=== PATIENT | male | born 2000 | race Two or more races ===

== ENCOUNTER 2025-07-24 16:32 | Emergency (ER) | payer MEDICAID, OTHER ==
[~2025-07-24] VITALS: Ht 180.3 cm; Wt 66.0 kg
[2025-07-24] MEDS: ACETAMINOPHEN 325 MG TAB PO ONE (17:07)
[2025-07-24] MEDS: ONDANSETRON ODT 4 MG TAB PO ONE (18:35)
[2025-07-24] MEDS: SODIUM CHLORIDE 0.9% 1,000 ML IV ONE (18:36)
--- NOTE | 2025-07-24 18:39 | ED.PDOC ---
History of Present Illness HPI Comments 24-YEAR-OLD MALE PRESENTS TO ER WITH COMPLAINTS OF FLU-LIKE SYMPTOMS X2 DAYS. PATIENT REPORTS HE HAS BEEN EXPERIENCING SORE THROAT, INTERMITTENT FEVER, DRY COUGH AND FRONTAL HEADACHE X 2 DAYS WITH ASSOCIATED N/V X 1 DAY. HE RATES HIS CURRENT SORE THROAT PAIN AND FRONTAL HEADACHE PAIN AN 8/10 AND STATES HE LAST IBUPROFEN AT 10 A.M. PRIOR TO ARRIVAL TO ER. PATIENT PRESENTS TO ER FEBRILE ON ARRIVAL AT 101.1 F, ALERT AND ORIENTED X4 WITH STEADY GAIT. PATIENT IS ALSO NOTED TO BE HYPERVENTILATING ON ARRIVAL AND STATES "I NORMALLY GET VERY ANXIOUS WHEN I'M SICK". REPORTS + EXPOSURE TO SICK CONTACTS AT WORK. DENIES SHORTNESS OF BREATH, CHEST PAIN, DIZZINESS, NECK PAIN, ABDOMINAL PAIN, CHANGES IN URINATION/BM OR ANY FURTHER SYMPTOMS/COMPLAINTS Chief Complaint: Fever Time Seen by MD: 18:13 Primary Care Provider: UNKNOWN Reviewed Notes: Nurses Notes, Medications, Allergies Information Source: Patient Mode of Arrival: Ambulatory Past Medical History PAST MEDICAL HISTORY: Denies Surgical History: Denies all surgeries Family History Family History: Unknown Social History Smoker: Non-Smoker Alcohol: Denies ETOH Use Drugs: Denies Drug Use Lives In: Home Constitutional: See HPI EENTM: See HPI Respiratory: See HPI Cardiovascular: No Symptoms Reported Gastrointestinal: See HPI Genitourinary: No Symptoms Reported Neurological: See HPI Musculoskeletal: No Symptoms Reported Integumentary: No Symptoms Reported Allergic/Immunocompromised: others (DENIES) Hematologic/Lymphatic: No Symptoms Reported Endocrine: No Symptoms Reported Psychiatric: Other ( STATED IN HPI) Physical Exam General Appearance: Mild Distress HEENT: Normal ENT Inspection, PERRL/EOMI, Pharynx Normal, TMs Normal Neck: Full Range of Motion, Non-Tender, Normal Respiratory: Chest Non-Tender, Lungs Clear, No Accessory Muscle Use, No Respiratory Distress, Normal Breath Sounds Cardiovascular: No Murmur, No Gallop, Tachycardia Breast Exam: Deferred Gastrointestinal: No Organomegaly, Non Tender, No Pulsatile Mass, Normal Bowel Sounds, Soft Genitalia: Deferred Pelvic: Deferred Rectal: Deferred Extremities: Normal capillary refill, Normal range of motion Neurologic: Alert, painting technician II-XII nml as Tested, No Motor Deficits, Normal Mood, No Sensory Deficits Cerebellar Function: Normal Reflexes: Normal Skin: Dry, Normal Color, Warm Peripheral Pulses: 3+ Radial (R), 3+ Radial (L), 3+ Brachial (R), 3+ Brachial (L) Lymphatic: No Adenopathy Was a procedure done? Was a procedure done?: No Sedation Sedation?: No Fever Differential Dx Differential Diagnosis: Pneumonia, Sepsis, Pharyngitis X-Ray, Labs, Meds, VS Vital Signs Date Time Temp Pulse Resp B/P (MAP) Pulse Ox O2 Delivery O2 Flow Rate FiO2 07/24/25 19:35 99.4 99.4 07/24/25 19:35 99.4 07/24/25 19:06 100.7 07/24/25 18:41 100.7 102 16 111/61 (78) 100 100.7 07/24/25 18:41 102 16 100 Room Air 07/24/25 17:07 101.8 07/24/25 16:35 101.1 140 28 144/63 100 101.1 Lab Test 07/24/25 19:07 07/24/25 18:38 07/24/25 18:28 Range/Units Urine Color Yellow Yellow Urine Clarity Clear Clear Urine pH 7.5 5.0-9.0 Urine Specific [place] 1.022 1.001-1.035 Urine Protein Trace H Negative Urine Ketones 1+ H Negative Urine Blood Negative Negative /uL Urine Nitrite Negative Negative Urine Bilirubin Negative Negative Urine Urobilinogen 2 H Negative mg/dL Urine Leukocyte Esterase Negative Negative /uL Urine RBC <1 0 - 3 /hpf Urine Microscopic WBC 1 0-3 /HPF Urine Squamous Epithelial Cells Few <5 /hpf Urine Bacteria None seen None Seen /hpf Urine Mucus Few None Seen Urine Glucose Normal Normal mg/dL White Blood Count 8.6 4.4-10.8 10^3/uL Red Blood Count 4.88 4.5-5.90 10^6/uL Hemoglobin 14.5 13.5-17.5 g/dL Hematocrit 41.8 41.0-53.0 % Mean Corpuscular Volume 85.6 80.0-100.0 fL Mean Corpuscular Hemoglobin 29.7 28.0-32.0 pg Mean Corpuscular Hemoglobin Concent 34.7 32.0-36.0 g/dL Red Cell Distribution Width 13.3 11.8-14.3 % Platelet Count 173 140-450 10^3/uL Mean Platelet Volume 8.1 6.9-10.8 fL Neutrophils (%) (Auto) 86.2 H 37.0-80.0 % Lymphocytes (%) (Auto) 6.6 L 10.0-50.0 % Monocytes (%) (Auto) 7.0 0.0-12.0 % Eosinophils (%) (Auto) 0.0 0.0-7.0 % Basophils (%) (Auto) 0.2 0.0-2.0 % Neutrophils # (Auto) 7.4 1.6-8.6 10 ^3/uL Lymphocytes # (Auto) 0.6 0.4-5.4 10 ^3/uL Monocytes # (Auto) 0.6 0-1.3 10 ^3/uL Eosinophils # (Auto) 0 0-0.8 10 ^3/uL Basophils # (Auto) 0 0-0.2 10 ^3/uL Nucleated Red Blood Cells 0.1 % Sodium Level 138 136-145 mmol/L Potassium Level 3.0 L 3.5-5.1 mmol/L Chloride Level 102 98-107 mmol/L Carbon Dioxide Level 23 20-31 mmol/L Anion Gap 13 5-15 Blood Urea Nitrogen 10 9-23 mg/dL Creatinine 1.00 0.700-1.30 mg/dL Glomerular Filtration Rate Calc 109 >90 mL/min BUN/Creatinine Ratio 10.0 10.0-20.0 Serum Glucose 110 H 74-106 mg/dL Lactic Acid Level 1.3 0.4-2.0 mmol/L Calcium Level 9.4 8.7-10.4 mg/dL Total Bilirubin 1.5 H 0.2-1.0 mg/dL Aspartate Amino Transferase (AST) 17 13-40 U/L Alanine Aminotransferase (ALT) 16 7-40 U/L Alkaline Phosphatase 78 46-116 U/L Troponin I High Sensitivity < 3 L </=54 ng/L Total Protein 8.3 H 5.7-8.2 g/dL Albumin 5.0 H 3.2-4.8 g/dL Lipase 25 12-53 U/L Influenza Type A Antigen Negative Negative Influenza Type B Antigen Negative Negative SARS-CoV-2 Antigen (Rapid) Positive *A NEGATIVE Current Medications Medications (Trade) Dose Ordered Sig/Shyam Route Start Time Stop Time Status Last Admin Acetaminophen (Tylenol Tablet) 650 mg ONCE ONCE PO 07/24/25 16:45 07/24/25 16:46 DC 07/24/25 17:07 Sodium Chloride 1,000 ml @ 1,000 mls/hr Q1H ONCE IV 07/24/25 18:30 07/24/25 19:29 DC 07/24/25 18:36 Ondansetron HCl (Zofran Po) 4 mg ONCE ONCE PO 07/24/25 18:30 07/24/25 18:31 DC 07/24/25 18:35 Ibuprofen (Motrin Tablet) 800 mg ONCE ONCE PO 07/24/25 18:45 07/24/25 18:46 DC 07/24/25 19:06 PATIENT: DALE ROMANACCT: [id number]: [id number] : 2000 LOC: ER ROOM / BED: / AGE / SEX: 24 / M ADM STATUS: REG ER SERVICE 23 ORDERING PHYSICIAN: MARCELO SALDANA PROCEDURE(s): CXR2 - CHEST TWO VIEWS ROUTINE REASON: COUGH ORDER NUMBER(s): [id number], ACCESSION NUMBER(s): [id number] XY CHEST TWO VIEWS ROUTINE INDICATION: COUGH TECHNIQUE: Two views of the chest COMPARISON: None FINDINGS/IMPRESSION: LUNGS: No pleural effusion, consolidation, or pneumothorax MEDIASTINUM: Unremarkable BONES: No acute osseous abnormality OTHER: None ATED BY: KYLIE HOPSON MD DICTATED DATE/TIME: 07/24/251925 SIGNED BY: KYLIE HOPSON MD SIGNED DATE/TIME: 07/24/251925 CC: TYLENOL 650 MG P.O. ORDERED HEP-LOCK IV ORDERED NS 1 L IV ORDERED ZOFRAN 4 MG P.O. ORDERED IBUPROFEN 800 MG P.O. ORDERED POTASSIUM 40 MEQ P.O. ORDERED CBC REVIEWED WITHOUT ANY SIGNIFICANT ABNORMALITIES CMP REVIEWED- POTASSIUM 3.0 TROPONIN REVIEWED-NORMAL LIPASE REVIEWED-NORMAL LACTIC ACID REVIEWED-NORMAL BLOOD CULTURES ORDERED URINALYSIS REVIEWED WITHOUT ANY SIGNIFICANT ABNORMALITIES SWAB RESULTS REVIEWED-JUANCHO POSITIVE CHEST X-RAY REVIEWED PATIENT HAD IMPROVEMENT IN SYMPTOMS, AFEBRILE, TOLERATING P.O. INTAKE WELL AND WELL APPEARING/IN NO DISTRESS PRIOR TO DISCHARGE DIET EDUCATION DISCUSSED ADVISED TO FOLLOW UP WITH PCP IN 1-2 DAYS PATIENT VERBALIZED UNDERSTANDING AND AGREEABLE WITH CURRENT PLAN OF CARE ADVISED TO RETURN TO ER IMMEDIATELY IF SYMPTOMS WORSEN Images Reviewed?: Images reviewed and evaluated by me Time of 1ST Reevaluation: 18:38 Reevaluation 1ST: N/A Time of 2ND Reevaluation: 19:50 Reevaluation 2ND: Improved Patient Education/Counseling: Diagnosis, Treatment, Prognosis, Need For Follow Up Family Education/Counseling: No Family Present SEPSIS Sepsis Screen Date sepsis recognized/suspect: Jul 24, 2025 Time Sepsis recognized/suspect: 1634 Recent Procedure: No On Antibiotic Therapy: No Respiratory Rate >20: Yes Heart Rate >90: Yes Temp<36 C (96.8 F) or >38.3 C: Yes SBP <90 or MAP <65 mmHG: No New Acute Mental Status Change: No Is the patient on CPAP, BIPAP,: Yes Physician Orders Heplock Iv (07/24/25 ) Chest Two Views Routine (07/24/25 18:24) Director Of Manufacturing Operations (07/24/25 ) Pulse Oximetry (07/24/25 ) Blood Pressure (07/24/25 ) Vital Signs Date Time Temp Pulse Resp B/P (MAP) Pulse Ox O2 Delivery O2 Flow Rate FiO2 07/24/25 19:35 99.4 99.4 07/24/25 19:35 99.4 07/24/25 19:06 100.7 07/24/25 18:41 100.7 102 16 111/61 (78) 100 100.7 07/24/25 18:41 102 16 100 Room Air 07/24/25 17:07 101.8 07/24/25 16:35 101.1 140 28 144/63 100 101.1 Laboratory Tests Test 07/24/25 18:38 Lactic Acid Level 1.3 mmol/L (0.4-2.0) White Blood Count 8.6 10^3/uL (4.4-10.8) Medications Medications Dose Ordered Sig/Shyam Route Start Time Stop Time Status Last Admin Dose Admin Acetaminophen 650 mg ONCE ONCE PO 07/24/25 16:45 07/24/25 16:46 DC 07/24/25 17:07 Ibuprofen 800 mg ONCE ONCE PO 07/24/25 18:45 07/24/25 18:46 DC 07/24/25 19:06 Ondansetron HCl 4 mg ONCE ONCE PO 07/24/25 18:30 07/24/25 18:31 DC 07/24/25 18:35 Sodium Chloride 1,000 ml @ 1,000 mls/hr Q1H ONCE IV 07/24/25 18:30 07/24/25 19:29 DC 07/24/25 18:36 Departure 1 Departure Time of Disposition: 19:52 Impression: Primary Impression: Upper respiratory tract infection due to COVID-19 virus Disposition: 01 HOME / SELF CARE / HOMELESS Condition: Stable e-Prescriptions Ondansetron Odt 4MG Tab (ZOFRAN PO) 4 Mg Tb 4 MG PO Q8HPRN, #14 TAB 0 Refills ODT TAB-DISSOLVE IN MOUTH, THEN SWALLOW Prov: MARCELO SALDANA 07/24/25 Azithromycin (Azithromycin) 250 Mg Tab 250 MG PO DAILY MDD 500 for 5 Days, #6 TAB 0 Refills 2 TABLETS ORALLY ON DAY ONE, THEN 1 TABLET ORALLY DAILY FOR 4 DAYS Prov: MARCELO SALDANA 07/24/25 Acetaminophen (Acetaminophen) 500 Mg Tab 500 MG PO Q4HPRN, #30 TAB 0 Refills Prov: MARCELO SALDANA 07/24/25 Discharged With: Self Critical Care Note Critical Care Time?: No Stability Stability form required: No Heart Score Heart Score: Heart Score Response (Comments) Value History N/A 0 EKG N/A 0 Age N/A 0 Risk Factors N/A 0 Troponin N/A 0 Total 0 MARCELO SALDANA Jul 24, 2025 18:39
[2025-07-24 18:41] VITALS: BP 111/61; PULSE 102; RESP 16; O2SAT 100
[2025-07-24 18:52] LABS: Hematocrit 41.8 % (41.0-53.0); Hemoglobin 14.5 g/dL (13.5-17.5); Mean Corpuscular Hemoglobin 29.7 pg (28.0-32.0); Mean Corpuscular Volume 85.6 fL (80.0-100.0); Nucleated Red Blood Cells % 0.1 %
[2025-07-24 19:03] LABS: Alanine Aminotransferase 16 U/L (7-40); Alkaline Phosphatase 78 U/L (46-116); Anion Gap 13 (5-15); BUN/Creatinine Ratio 10.0 (10.0-20.0); Blood Urea Nitrogen 10 mg/dL (9-23); Calcium 9.4 mg/dL (8.7-10.4); Carbon Dioxide 23 mmol/L (20-31); Chloride 102 mmol/L (98-107); Lipase 25 U/L (12-53); Sodium 138 mmol/L (136-145)
[2025-07-24 19:06] LABS: COVID19 ANTIGEN SOFIA FIA POSITIVE (NEGATIVE)
[2025-07-24] MEDS: IBUPROFEN 800 MG TAB PO ONE (19:06)
[2025-07-24 19:07] LABS: Albumin 5.0 g/dL (3.2-4.8); Bilirubin, Total 1.5 mg/dL (0.2-1.0); Glucose 110 mg/dL (74-106); Potassium 3.0 mmol/L (3.5-5.1); Total Protein 8.3 g/dL (5.7-8.2)
--- NOTE | 2025-07-24 19:28 | DVH ---
XY CHEST TWO VIEWS ROUTINE INDICATION: COUGH TECHNIQUE: Two views of the chest COMPARISON: None FINDINGS/IMPRESSION: LUNGS: No pleural effusion, consolidation, or pneumothorax MEDIASTINUM: Unremarkable BONES: No acute osseous abnormality OTHER: None
[2025-07-24 19:41] LABS: Urine Protein, UAD TRACE (Negative)
[2025-07-24] MEDS ORDERED: AZIT-43 PO (19:52)
[2025-07-24] MEDS ORDERED: ACET500T58 PO (19:52)
[2025-07-24] MEDS ORDERED: ZOFR4T PO (19:52)
[2025-07-24 19:57] VITALS: TEMP 99.4
[2025-07-24] MEDS: POTASSIUM CHL 20 Meq TABLET PO ONE (20:07)
== END 2025-07-24 20:16 | disposition home or self-care (01) ==
LOC: ER 16:32
DX: U07.1 COVID-19 (principal)
CPT/HCPCS: 36415; 71046; 80053; 81001; 83605; 83690; 84484; 85025; 87426; 87804; 96360; 99285; J7030; Q0162